=== PATIENT | female | born 1985 | race Caucasian/White ===

== ENCOUNTER 2020-07-16 20:16 | Emergency (ER) | payer BC, MEDICAID ==
[2020-07-16 20:56] VITALS: BP 157/100; PULSE 130
--- NOTE | 2020-07-16 21:05 | EDM.PDOC ---
ED HPI GENERAL MEDICAL PROBLEM - General Chief Complaint: Back Pain or Injury Stated Complaint: MID/LOW BACK PAIN AFTER FALL Time Seen by Provider: 07/16/20 20:45 Source of Information: Reports: Patient History Limitations: Reports: No Limitations - History of Present Illness INITIAL COMMENTS - FREE TEXT/NARRATIVE: 35 YO WF PRESENTS TO ER AFTER SLIP AND FALL WHILE CARRYING A TABLE. PT THINKS SHE SLIPPED ON ICE AND LANDED ON HER TAILBONE. PT REPORTS NO PAIN IN BUTTOCKS OR RADIATING PAIN DOWN HER LEGS BUT STATES HER PAIN IS PRIMARILY IN HER MID TO LOWER BACK. PT DENIES BOWEL OR BLADDER DYSFUNCTION, NO SADDLE ANESTHESIA AND NO WEAKNESS ON AMBULATION. PT DENIES HITTING OR HEAD OR HEADACHE/NECK PAIN. Onset: Today Location: Reports: Back Quality: Reports: Ache Severity: Moderate Improves with: Reports: Rest Worsens with: Reports: Movement Context: Reports: Activity Associated Symptoms: Reports: No Other Symptoms. Denies: Headaches, Nausea/Vomiting, Weakness - Related Data Allergies Allergy/AdvReac Type Severity Reaction Status Date / Time No Known Drug Allergies Allergy Cannot Verified 07/16/20 20:39 Remember Home Meds: Home Meds Cyclobenzaprine [Flexeril] 10 mg PO BEDTIME PRN #10 tab 07/16/20 [Rx] DULoxetine [Cymbalta] 60 mg PO DAILY 07/16/20 [History] Desogestrel/Ethinyl Estradiol [Apri] PO ASDIRECTED 07/16/20 [History] Ibuprofen [Motrin] 600 mg PO Q6H #20 tab 07/16/20 [Rx] buPROPion HCL [Bupropion Xl] 150 mg PO DAILY 07/16/20 [History] hydroCHLOROthiazide [Hydrochlorothiazide] 12.5 PO DAILY 07/16/20 [History] traMADol [Ultram] 50 mg PO Q6H PRN #15 tab 07/16/20 [Rx] ED ROS GENERAL - Review of Systems Review Of Systems: See Below Constitutional: Reports: No Symptoms HEENT: Reports: No Symptoms Respiratory: Reports: No Symptoms Cardiovascular: Reports: No Symptoms Endocrine: Reports: No Symptoms GI/Abdominal: Reports: No Symptoms : Reports: No Symptoms Musculoskeletal: Reports: Back Pain. Denies: Neck Pain, Leg Pain Skin: Reports: No Symptoms Neurological: Reports: No Symptoms. Denies: Numbness, Paresthesia, Tingling, Difficulty Walking, Weakness ED EXAM,LOWER BACK PAIN/INJURY - Physical Exam Exam: See Below Exam Limited By: No Limitations General Appearance: Alert, WD/WN, No Apparent Distress Head: Atraumatic, Normocephalic Neck: Normal Inspection, Supple, Non-Tender, Full Range of Motion Respiratory/Chest: No Respiratory Distress, Lungs Clear, Normal Breath Sounds, No Accessory Muscle Use, Chest Non-Tender Cardiovascular: Normal Peripheral Pulses, Regular Rate, Rhythm, No Edema, No Gallop, No JVD, No Murmur, No Rub GI/Abdominal: Normal Bowel Sounds, Soft, Non-Tender, No Organomegaly, No Distention, No Abnormal Bruit, No Mass Back Exam: Decreased Range of Motion, Muscle Spasm, Paraspinal Tenderness Extremities: Normal Inspection, Normal Range of Motion, Non-Tender, No Pedal Edema, Normal Capillary Refill Neurological: Alert, Normal Mood/Affect, Normal Dorsiflexion, CN II-XII Intact, Normal Plantar Flexion, Normal Gait, Normal Reflexes, No Motor/Sensory Deficits, Oriented x 3 Psychiatric: Normal Affect, Normal Mood Skin Exam: Warm, Dry, Intact, Normal Color, No Rash Lymphatic: No Adenopathy Course - Vital Signs Last Recorded V/S: Last Vital Signs Temp 97.8 F 07/16/20 20:55 Pulse 130 H 07/16/20 20:55 Resp 20 07/16/20 20:55 BP 157/100 H 07/16/20 20:55 Pulse Ox 99 07/16/20 20:55 - Orders/Labs/Meds Orders: Active Orders 24 hr Category Date Time Status Lumbar Spine 2 or 3V [CR] Stat Exams 07/16/20 20:47 Ordered Thoracic Spine 2V [CR] Stat Exams 07/16/20 20:47 Ordered Meds: Medications Discontinued Medications Generic Name Dose Route Start Last Admin Trade Name Freq PRN Reason Stop Dose Admin Ketorolac Tromethamine 60 mg 07/16/20 21:15 Toradol IM 07/16/20 21:16 ONETIME ONE Ketorolac Tromethamine Confirm 07/16/20 21:17 Toradol Administered 07/16/20 21:18 Dose 60 mg .ROUTE .STK-MED ONE Prednisone 60 mg 07/16/20 21:19 Prednisone PO 07/16/20 21:20 ONETIME ONE - Radiology Interpretation Free Text/Narrative:: THORACIC SPINE- NO FX; GOOD ALIGNMENT LUMBAR SPINE- NO FX; GOOD ALIGNMENT Departure - Departure Time of Disposition: 21:21 Disposition: Home, Self-Care 01 Condition: Good Clinical Impression: Strain of mid-back Qualifiers: Encounter type: initial encounter Qualified Code(s): S29.012A - Strain of muscle and tendon of back wall of thorax, initial encounter Injury of back due to fall Qualifiers: Encounter type: initial encounter Qualified Code(s): S39.92XA - Unspecified injury of lower back, initial encounter - Discharge Information Prescriptions: Cyclobenzaprine [Flexeril] 10 mg PO BEDTIME PRN #10 tab PRN Reason: Muscle Spasm Ibuprofen [Motrin] 600 mg PO Q6H #20 tab traMADol [Ultram] 50 mg PO Q6H PRN #15 tab PRN Reason: Pain Instructions: Muscle Strain, [id number], Thoracic Strain Rehab-SportsMed Referrals: Hortensia Minor NP [Primary Care Provider] - Forms: ED Department Discharge Additional Instructions: 1. DISCHARGE HOME 2. MOTRIN 600MG EVERY 6 HOURS X 5 DAYS 3. ULTRAM 50MG 1-2 TABLETS EVERY 6 HOURS NEEDED FOR PAIN 4. FLEXERIL 10MG 1 TABLET AT BEDTIME FOR MUSCLE RELAXATION 5. FOLLOW UP WITH PCP IF NO IMPROVEMENT NEXT 5-7 DAYS 6. RETURN TO ER FOR WORSENING SYMPTOMS 7. ICE TO BACK TONIGHT THEN HEAT TO BACK TOMORROW 15 MINUTES AT LEAST 3 X/DAY Sepsis Event Note (ED) - Evaluation Sepsis Screening Result: No Definite Risk - Focused Exam Vital Signs: Vital Signs Temp Pulse Resp BP Pulse Ox 07/16/20 20:55 97.8 F 130 H 20 157/100 H 99 - My Orders Last 24 Hours: My Active Orders 07/16/20 20:47 Lumbar Spine 2 or 3V [CR] Stat Thoracic Spine 2V [CR] Stat - Assessment/Plan Last 24 Hours: My Active Orders 07/16/20 20:47 Lumbar Spine 2 or 3V [CR] Stat Thoracic Spine 2V [CR] Stat Assessment:: 1. MID BACK STRAIN 2. FALL WITH BACK INJURY Plan: 1. DISCHARGE HOME 2. MOTRIN 600MG EVERY 6 HOURS X 5 DAYS 3. ULTRAM 50MG 1-2 TABLETS EVERY 6 HOURS NEEDED FOR PAIN 4. FLEXERIL 10MG 1 TABLET AT BEDTIME FOR MUSCLE RELAXATION 5. FOLLOW UP WITH PCP IF NO IMPROVEMENT NEXT 5-7 DAYS 6. RETURN TO ER FOR WORSENING SYMPTOMS 7. ICE TO BACK TONIGHT THEN HEAT TO BACK TOMORROW 15 MINUTES AT LEAST 3 X/DAY
[2020-07-16] MEDS ORDERED: Ketorolac 60 MG/2 ML SDV IM ONE (21:15)
[2020-07-16] MEDS ORDERED: Ketorolac 60 MG/2 ML SDV ONE (21:17)
[2020-07-16] MEDS ORDERED: predniSONE 20 MG Tab PO ONE (21:19)
--- NOTE | 2020-07-17 07:57 | CR ---
[id number] RAD/RAD Lumbar Spine 2-3V EXAM: AP AND LATERAL LUMBAR SPINE. INDICATION: Trauma COMPARISON: No previous similar exam is available for comparison. FINDINGS: No fracture or subluxation is seen. There is preservation of height of disc spaces and vertebrae. The pedicles are intact. IMPRESSION: No fracture or subluxation. Bhupinder Owusu MD 07/17/20 0756 Thank you for allowing us to participate in the care of your patient.
--- NOTE | 2020-07-17 07:57 | CR ---
[id number] RAD/RAD Thoracic Spine 2V EXAM: RAD Thoracic Spine 2V INDICATION: TRAUMA COMPARISON: No previous similar exam is available. FINDINGS: THERE IS MINIMAL LOSS OF HEIGHT OF UPPER THORACIC VERTEBRAE, AGE INDETERMINATE NO OTHER ABNORMALITY IS SEEN IF SYMPTOMS PERSIST, CONSIDER MRI IMPRESSION: NO OBVIOUS ACUTE FRACTURE MINIMAL LOSS OF HEIGHT OF UPPER THORACIC VERTEBRAE Bhupinder Owusu MD 07/17/20 0756 Thank you for allowing us to participate in the care of your patient.
== END 2020-07-16 21:32 | disposition home or self-care (01) ==
LOC: KA.ED 20:16
DX: S29.012A Strain of muscle and tendon of back wall of thorax, initial encounter (principal); Z79.899 Other long term (current) drug therapy; W00.0XXA Fall on same level due to ice and snow, initial encounter
CPT/HCPCS: 72070; 72100; 96372; 99283; 99283-25; J1885; J7512